=== PATIENT | male | born 1985 | race Two or more races ===

== ENCOUNTER 2019-12-17 10:33 | Emergency (ER) | payer BC, OTHER ==
[~2019-12-17] VITALS: Ht 167.6 cm; Wt 77.3 kg
[2019-12-17] MEDS ORDERED: QUET25TA PO (10:46)
[2019-12-17] MEDS ORDERED: DIAZ5 PO (10:46)
[2019-12-17 11:13] LABS: BASOPHILS % (AUTO) 0.2 % (0.0-2.0); EOSINOPHILS % (AUTO) 0.1 % (1.0-6.0); HEMATOCRIT 44.4 % (41-53); HEMOGLOBIN 14.8 g/dL (13.5-17.5); LYMPHOCYTES # (AUTO) 0.8 K/uL (1.0-4.8); LYMPHOCYTES % (AUTO) 6.6 % (22.0-44.0); MEAN CORPUSCULAR HEMOGLOBIN 30.3 pg (26.0-34.0); MEAN CORPUSCULAR HGB CONC 33.3 G/dL (31.0-37.0); MEAN CORPUSCULAR VOLUME 91 fL (80-100); MONOCYTES # (AUTO) 0.5 K/uL (0.1-1.0); MONOCYTES % (AUTO) 4.4 % (2.0-9.0); NEUTROPHILS # (AUTO) 10.4 K/uL (1.8-7.7); PLATELET COUNT (AUTO) 398 K/uL (150-450); RED BLOOD CELL COUNT(AUTO) 4.88 MIL/uL (4.50-5.90); RED CELL DISTRIBUTION WIDTH 13.6 % (11.5-14.5)
[2019-12-17 11:16] LABS: NEUTROPHILS % (AUTO) 88.7 % (40.0-70.0)
[2019-12-17 11:34] LABS: ANION GAP 9 mmol/L (8-16); CALCIUM, TOTAL 9.3 mg/dL (8.8-10.5); CARBON DIOXIDE 26 mmol/L (22-29); CHLORIDE 105 mmol/L (98-107); CREATININE 1.12 mg/dL (0.60-1.30); GLOMERULAR FILTR. RATE CALC > 60 mL/min (>60); GLUCOSE,RANDOM 103 mg/dL (70-110); POTASSIUM 3.7 mmol/L (3.5-5.1); SODIUM SERUM 140 mmol/L (136-145); UREA NITROGEN, BLOOD 8 mg/dL (7-18)
[2019-12-17 11:47] LABS: ACETAMINOPHEN < 2 mcg/mL (10-30); ALANINE AMINOTRANSFERASE 36 U/L (12-78); ALBUMIN 4.3 g/dL (3.4-5.0); ALKALINE PHOSPHATASE 85 U/L (46-116); ASPARTATE AMINOTRANSFERASE 26 U/L (15-37); BILIRUBIN,TOTAL 0.2 mg/dL (0.1-1.0)
[2019-12-17 14:41] LABS: SALICYLATE < 2.8 mg/dL (2.8-20.0)
[2019-12-17 16:14] VITALS: BP 125/72
== END 2019-12-17 16:19 | disposition home or self-care (01) ==
LOC: EMS 10:36
DX: T43.592A Poisoning by other antipsychotics and neuroleptics, intentional self-harm, initial encounter (principal); F10.129 Alcohol abuse with intoxication, unspecified; Z20.828 Contact with and (suspected) exposure to other viral communicable diseases; Y90.4 Blood alcohol level of 80-99 mg/100 ml; Y92.89 Other specified places as the place of occurrence of the external cause
CPT/HCPCS: 36415; 70450; 72125; 80053; 85025; 87426; 93005; 99291; G0480; G0481